=== PATIENT | female | born 1965 | race Caucasian/White ===

== ENCOUNTER → 2018-06-10 | Outpatient (CLI) | payer OTHER ==
[~2018-06-10] MED LIST: BENADRYL25 MG PO; KENALOG60 GM TP; PREDNISONE 20 M20 MG PO; PREDNISONE10 MG PO; TESSALON PERLE100 MG PO; VENTOLIN HFA 1818 GM INH; ZPAK PO
== END ==
LOC: M.ULTRA 07:30
DX: D17.79 Benign lipomatous neoplasm of other sites (principal); R22.43 Localized swelling, mass and lump, lower limb, bilateral; Z86.018 Personal history of other benign neoplasm